=== PATIENT | female | born 1980 | race Caucasian/White ===

== ENCOUNTER 2023-07-26 17:42 | Emergency (ER) | payer MEDICAID ==
[~2023-07-26] VITALS: Ht 157.5 cm; Wt 57.6 kg
[2023-07-26 17:42] VITALS: BP_SYST 125; PULSE 63; RESP 18; TEMP 98; O2SAT 99
[2023-07-26] MEDS: IBUPROFEN 600 MG TABLET PO ONE (18:38)
[2023-07-26] MEDS ORDERED: IBUP-1969 PO (18:47)
[2023-07-26] MEDS ORDERED: DICL20GE TP (18:47)
== END 2023-07-26 18:55 | disposition home or self-care (01) ==
LOC: SED 17:42
DX: S90.32XA Contusion of left foot, initial encounter (principal); W20.8XXA Other cause of strike by thrown, projected or falling object, initial encounter; Y93.89 Activity, other specified; Y92.89 Other specified places as the place of occurrence of the external cause; Y99.8 Other external cause status
CPT/HCPCS: 99283